=== PATIENT | male | born 1950 | race Caucasian/White ===

== ENCOUNTER 2023-02-15 10:57 | Emergency (ER) | payer OTHER ==
[2023-02-15 11:06] VITALS: BMI 27.3
[2023-02-15 12:08] LABS: HEMOGLOBIN 14.2 GM/dL (11.7-16.9); MCHC 35.5 g/dl (32.0-35.9); MEAN CELL VOLUME 95.9 fl (80-96); PLATELET COUNT 156 10^3/uL (134-434); RBC 4.18 M/mm3 (4.00-5.60); RDW 12.2 % (11.9-15.9); WHITE BLOOD COUNT 4.7 K/mm3 (4.0-10.0)
[2023-02-15 12:49] LABS: POTASSIUM 4.4 mmol/L (3.5-5.1)
[2023-02-15 12:51] LABS: ALBUMIN 4.2 g/dl (3.4-5.0); BLOOD UREA NITROGEN 16.3 mg/dL (7-18); CALCIUM 9.5 mg/dL (8.5-10.1); MAGNESIUM 2.1 mg/dL (1.8-2.4)
[2023-02-15 12:54] LABS: CREATININE 1.2 mg/dL (0.55-1.3)
[2023-02-15 12:56] LABS: BILIRUBIN,TOTAL 0.8 mg/dL (0.2-1); TOT PROT 8.2 g/dl (6.4-8.2)
[2023-02-15 14:21] LABS: PH,URINE 5.5 (5.0-8.0); URINE APPEARANCE CLEAR; URINE BILIRUBIN NEGATIVE (NEGATIVE); URINE COLOR YELLOW; URINE GLUCOSE (UA) NEGATIVE (NEGATIVE); URINE KETONE NEGATIVE (NEGATIVE); URINE LEUK ESTERASE NEGATIVE (NEGATIVE); URINE NITRITE NEGATIVE (NEGATIVE); URINE PROTEIN NEGATIVE (NEGATIVE); URINE UROBILINOGEN 0.2 mg/dL (0.2-1.0)
[2023-02-15 15:09] VITALS: BP 125/72; PULSE 62; RESP 17; TEMP 98.1
== END 2023-02-15 15:15 | disposition home or self-care (01) ==
LOC: JER 10:57
DX: R07.9 Chest pain, unspecified (principal); R20.2 Paresthesia of skin; Z20.822 Contact with and (suspected) exposure to COVID-19
CPT/HCPCS: 0241U-QW; 36415; 70450-TC; 71045-TC-FY; 80053; 81003; 83735; 84484; 85027; 87086; 93005; 93010; 99285-25

== ENCOUNTER 2023-10-15 07:54 | Observation (INO) | payer OTHER ==
[2023-10-15 08:27] VITALS: BP 147/72; PULSE 111; RESP 16; TEMP 99.6; BMI 27.9
[2023-10-15 10:26] LABS: BASO % 0.5 % (0-2.0); EOS % 0.2 % (0-4.5); HEMATOCRIT 33.8 % (35.4-49); LYMPH % 8.2 % (8-40); MCH 31.3 pg (25.7-33.7); MCHC 32.6 g/dl (32.0-35.9); MEAN CELL VOLUME 96.1 fl (80-96); MEAN PLT VOLUME 9.8 fl (7.5-11.1); MONO % 9.8 % (3.8-10.2); NEUT % 81.3 % (42.8-82.8); PLATELET COUNT 223 10^3/uL (134-434); RBC 3.52 M/mm3 (4.00-5.60); RDW 16.7 % (11.9-15.9); WHITE BLOOD COUNT 5.8 K/mm3 (4.0-10.0)
[2023-10-15 10:43] LABS: CALCIUM 9.2 mg/dL (8.5-10.1)
[2023-10-15 10:44] LABS: ALBUMIN 4.7 g/dl (3.4-5.0); BLOOD UREA NITROGEN 13.1 mg/dL (7-18)
[2023-10-15 10:47] LABS: CREATININE 1.2 mg/dL (0.55-1.3)
[2023-10-15 10:48] LABS: BILIRUBIN,TOTAL 1.6 mg/dL (0.2-1); TOT PROT 8.8 g/dl (6.4-8.2)
== END 2023-10-15 12:18 | disposition home or self-care (01) ==
LOC: JER 07:54 → JERBED 10:55
PROVIDERS: ADMIT Internal Medicine; ATTEND Internal Medicine
DX: J09.X2 Influenza due to identified novel influenza A virus with other respiratory manifestations (principal); I10 Essential (primary) hypertension; Z95.2 Presence of prosthetic heart valve; E78.5 Hyperlipidemia, unspecified; R00.0 Tachycardia, unspecified
CPT/HCPCS: 0241U-QW; 36415; 71046-TC-FY; 80053; 84484; 85025; 87040; 93005; 93010; 99285-25; G0378